=== PATIENT | male | born 1940 | race Caucasian/White ===

== ENCOUNTER 2021-01-02 08:39 | Day surgery (SDC) | payer MEDICARE, SELFPAY ==
[2021-01-02 08:58] VITALS: BP 161/71; PULSE 96; RESP 18; TEMP 36.7; O2SAT 95; BMI 36.5
[2021-01-02 09:14] LABS: Glucose, Whole Blood 176 mg/dL (60-115)
--- NOTE | 2021-01-02 09:17 | P.CONAN_ITS ---
HPI - Anesthesia Eval Consult details Narrative: Colonoscopy [facility] Past Medical History Medical History (Updated 01/01/21 @ 08:27 by Cassidy Rousseau RN) Coronary artery disease involving coronary bypass graft Diabetes Elevated cholesterol GERD (gastroesophageal reflux disease) HTN (hypertension) Myocardial infarction Nocturia Family History Family history of problems with anesthesia: No Surgical History Surgical History (Updated 01/01/21 @ 08:26 by Cassidy Rousseau RN) History of nasal surgery Hx of CABG History of Problems with Anesthesia: No Social History Social History Patient Tobacco Use Status: Former Tobacco user Use of substances other than those prescribed or required for medical reasons: No Are you DNR?: No Advance Directives: No Advance Directives Information Provided: Yes Meds Allergies Allergy/AdvReac Type Severity Reaction Status Date / Time lisinopril Allergy Unknown Verified 01/01/21 08:27 Home Medications Medication Instructions Recorded Confirmed Last Taken Type CoQ-10 150 PO DAILY 01/01/21 Unknown History allopurinol 300 mg tablet 300 mg PO DAILY 01/01/21 01/01/21 Unknown History aspirin 325 mg tablet 325 mg PO DAILY 01/01/21 01/01/21 Unknown History cholecalciferol (vitamin D3) 25 25 mcg PO DAILY 01/01/21 01/01/21 Unknown History mcg (1,000 unit) tablet (Vitamin D3) clopidogrel 75 mg tablet 75 mg PO DAILY 01/01/21 01/01/21 Unknown History losartan 25 mg tablet 25 mg PO DAILY 01/01/21 01/01/21 Unknown History metformin 500 mg tablet 500 mg PO DAILY 01/01/21 01/01/21 Unknown History metoprolol succinate 50 mg 50 mg PO BID 01/01/21 01/01/21 Unknown History tablet,extended release 24 hr omega-3 fatty acids-vitamin E cap PO DAILY 01/01/21 Unknown History 1,000 mg capsule pravastatin 40 mg tablet 40 mg PO DAILY 01/01/21 01/01/21 Unknown History Exam Exam Date and Time: January 02, 202117 Height,Weight and Vital Signs: Height 5 ft 8 in Weight 108.862 kg Last Vital Signs Temp 98.0 F 01/02/21 08:58 Pulse 96 01/02/21 08:58 Resp 18 01/02/21 08:58 BP 161/71 H 01/02/21 08:58 Pulse Ox 95 01/02/21 08:58 Pertinent Lab Results Pertinent Lab Results: Laboratory Tests 01/02/21 09:03 POC Glucose 176 H Airway Mallampati Class: III TM Dist: >3cm Neck ROM: Full Loose/Missing/Broken Teeth: Yes (many crowns none loose) Heart: [id number] Lungs: cta b/l Assessment and Plan Assessment Anesthesia Assessment: Anesthesia Plan Discussed and Chart Reviewed Final Anesthetic Review Family History of Problems with Anesthesia: No History of Problems with Anesthesia: No NPO: Yes ASA Class: III Final Preanesthetic Review: No Changes in Pt Med Stat, Meds/Allgs Chart Reviewed, Consent Obtained/Reviewed and Anes Risks/Benef Reviewed Patient Risk: Intermediate Procedure Risk: Low Assessment/Block/Sedation in SS: Assess/Block/Sedation-SS Anesthetic Plan Anesthetic Plan: MAC: and Agree w/ Assess. and Plan Disposition: Standard PACU
[2021-01-02] MEDS: Lactated Ringers 1,000 ML 50 ML IVCONT (09:28)
--- NOTE | 2021-01-02 10:34 | P.BOP_ITS ---
Brief Operative Note Date of Service: 01/02/21 Pre-op diagnosis: screenihng Post-op diagnosis: same (colon polyps) Surgeon: Sammy Short Anesthesia: MAC Was an Director Of Cardiology used for this Procedure?: No Estimated blood loss (mL): 5 Pathology: other (polyps 95, 55, 75 cm) Condition: stable Disposition: PACU
[2021-01-02 10:35] VITALS: BP 107/60; PULSE 87; RESP 16; TEMP 36.5; O2SAT 95
--- NOTE | 2021-01-02 10:47 | OP_ITS ---
SURGEON: Sammy Short MD INDICATIONS: Colon cancer screening and prior history of adenomatous colon polyps. PREOPERATIVE DIAGNOSIS: POSTOPERATIVE DIAGNOSIS: PROCEDURE PERFORMED: ESTIMATED BLOOD LOSS: COMPLICATIONS: ANESTHESIA: ASSISTANTS: SPECIMENS: PROCEDURES PERFORMED: Colonoscopy to the terminal ileum with biopsy, snare polypectomy, and cauterization of colon polyps. MEDICATIONS: Monitored anesthesia care. DESCRIPTION OF PROCEDURE: History and physical performed. The risks and benefits of the procedure were explained to the patient. Informed consent was obtained. The patient was placed in the left lateral decubitus position. A digital rectal exam was performed and was found to be normal. The Olympus pediatric video colonoscope was introduced into the rectum and advanced to the cecum without difficulty. The cecum was identified by transillumination, palpation, and identification of ileocecal valve. Examination was performed and the scope was removed. He tolerated the procedure well and was taken to recovery area in stable condition. FINDINGS: The terminal ileum was normal. The visualized colonic mucosa was normal without evidence of colitis. Multiple colonic polyps were identified and removed using a combination of snare polypectomy, biopsy forceps, and cauterization with the tip of the snare. Polyps were located at 95 cm x2, 75 cm x4, and 55 cm x2. Retroflexed examination showed small internal hemorrhoids. The quality of the prep was good. IMPRESSION: Colon polyps. RECOMMENDATION: Follow up biopsy results. MD EDGARD Hernandez/ROMAIN / [id number]
--- NOTE | 2021-01-02 10:49 | MHC.SHP ---
Pre-Procedural Eval Section A Date of Service: 01/02/21 The patient is an INPATIENT: No Changes since office visit: No Cold of Flu in the past 2 weeks, No New Medical Problems, No Changes in Medication and No Patient answered all questions The History & Physical has been completed within 30 days and I have reviewed it.: Yes Section B Chief Complaint: screening Allergies: Allergies Allergy/AdvReac Type Severity Reaction Status Date / Time lisinopril Allergy Unknown Verified 01/01/21 08:27 Plan I have reviewed the history and physical and performed a pertinent physical examination on my patient. No changes have occurred unless specified.
[2021-01-02 10:50] VITALS: BP 122/73; PULSE 96; RESP 17; TEMP 36.5; O2SAT 95
== END 2021-01-02 11:45 | disposition home or self-care (01) ==
PROVIDERS: PCP Internal Medicine; Visit Provider Internal Medicine Gastroenterology
PROC: 0DJD8ZZ Inspection of Lower Intestinal Tract, Via Natural or Artificial Opening Endoscopic (ICD-10-PCS; CPT 45378; principal; 2021-01-02 09:50)
DX: Z12.11 Encounter for screening for malignant neoplasm of colon (principal); D12.6 Benign neoplasm of colon, unspecified; Z86.010 Personal history of colon polyps; I10 Essential (primary) hypertension; E11.9 Type 2 diabetes mellitus without complications; I25.10 Atherosclerotic heart disease of native coronary artery without angina pectoris; Z79.82 Long term (current) use of aspirin; Z79.84 Long term (current) use of oral hypoglycemic drugs; Z79.899 Other long term (current) drug therapy; I25.2 Old myocardial infarction; Z95.1 Presence of aortocoronary bypass graft
CPT/HCPCS: 45385; 45380; 82947; 88305